=== PATIENT | male | born 1985 | race Caucasian/White ===

== ENCOUNTER 2016-10-16 16:40 | Emergency (ER) | payer MEDICAID ==
[~2016-10-16] VITALS: Ht 185.4 cm; Wt 97.1 kg
[2016-10-16 17:47] VITALS: BP 130/64
== END 2016-10-16 17:47 | disposition home or self-care (01) ==
LOC: ED 16:40
DX: J02.9 Acute pharyngitis, unspecified (principal); F17.200 Nicotine dependence, unspecified, uncomplicated